=== PATIENT | male | born 1995 | race Caucasian/White ===

== ENCOUNTER 2021-02-04 17:49 | Emergency (ER) | payer OTHER ==
[~2021-02-04] VITALS: Ht 190.5 cm; Wt 76.7 kg
--- NOTE | 2021-02-04 20:15 | REPVR ---
PROCEDURE INFORMATION: Exam: XR Right Shoulder Exam date and time: 02/04/2021 7:16 PM Age: 25 years old Clinical indication: Pain; Shoulder; Right; Additional info: Pain, dec rom, numbness in fingers TECHNIQUE: Imaging protocol: XR Right shoulder. Views: 2 or more views. COMPARISON: No relevant prior studies available. FINDINGS: Bones/joints: Normal. Soft tissues: Normal. IMPRESSION: No acute findings. Electronically signed by: Dustin Bansal On 02/04/2021 20:15:03 PM
--- NOTE | 2021-02-04 20:16 | REPVR ---
PROCEDURE INFORMATION: Exam: XR Cervical Spine Exam date and time: 02/04/2021 7:16 PM Age: 25 years old Clinical indication: Neck pain; Additional info: Limited rom neck TECHNIQUE: Imaging protocol: XR of the cervical spine. Views: 2 or 3 views. COMPARISON: No relevant prior studies available. FINDINGS: Bones/joints: Normal. No acute fracture. Normal alignment. Soft tissues: Unremarkable. IMPRESSION: No acute findings. Electronically signed by: Dustin Bansal On 02/04/2021 20:15:57 PM
[2021-02-04] MEDS ORDERED: CYCL5TAB PO (20:54)
[2021-02-04] MEDS ORDERED: NORCO, ANEXSIA 5/325MG TABLET (HYDROcodone/ACETAMINOPHEN) PO ONE (20:55)
[2021-02-04] MEDS ORDERED: IBUP80TA PO (20:55)
[2021-02-04 21:02] VITALS: BP 126/79
== END 2021-02-04 21:07 | disposition home or self-care (01) ==
LOC: M ED 17:49
DX: M25.511 Pain in right shoulder (principal)

== ENCOUNTER 2021-04-30 23:49 | Emergency (ER) | payer OTHER ==
[~2021-04-30] VITALS: Ht 190.5 cm; Wt 78.3 kg
[~2021-04-30 23:49] MED LIST: CYCL5TAB PO; IBUP80TA PO
--- NOTE | 2021-05-01 03:08 | REPVR ---
PROCEDURE INFORMATION: Exam: US Scrotum Exam date and time: 05/01/2021 2:50 AM Age: 25 years old Clinical indication: Groin pain; Additional info: Lump in groin TECHNIQUE: Imaging protocol: Real-time ultrasound of the scrotum and contents with color Doppler and image documentation. COMPARISON: No relevant prior studies available. FINDINGS: Right testicle: Normal. No mass. No torsion. Normal vascular flow. Left testicle: Microlithiasis in the left testicle. No testicular mass or torsion. Epididymides: Normal. No hyperemia or mass. Scrotum: Normal. No varicocele or hydrocele. IMPRESSION: 1. Left testicular microlithiasis. 2. No acute findings. Electronically signed by: Miguel Santiago On 05/01/2021 03:07:38 AM
--- NOTE | 2021-05-01 03:10 | REPVR ---
PROCEDURE INFORMATION: Exam: US Pelvis Limited, Transabdominal, Soft tissue Exam date and time: 05/01/2021 2:50 AM Age: 25 years old Clinical indication: Pain; Other: Lt grion; Additional info: Lump in groin TECHNIQUE: Imaging protocol: Real-time transabdominal pelvic ultrasound with image documentation. Limited exam. Exam focused on the soft tissue. COMPARISON: Scrotal, US 05/01/2021 2:25 AM FINDINGS: Soft tissues: There is a complex fluid collection in the left groin corresponding to the palpable abnormality, measuring 2.0 x 1.0 x 1.1 cm. Mild surrounding hyperemia. No other mass or fluid collections. No inguinal hernia. Lymph nodes: Scattered small inguinal lymph nodes. IMPRESSION: 1. Complex fluid collection left inguinal canal, possible small abscess. 2. No inguinal hernia. Electronically signed by: Miguel Santiago On 05/01/2021 03:10:06 AM
[2021-05-01 04:22] VITALS: BP 134/73
[2021-05-01] MEDS ORDERED: BACT800T5 PO (05:14)
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
== END 2021-05-01 05:20 | disposition home or self-care (01) ==
LOC: M ED 23:49
DX: L02.214 Cutaneous abscess of groin (principal)

== ENCOUNTER 2021-07-06 09:03 | Emergency (ER) | payer OTHER ==
[~2021-07-06] VITALS: Ht 190.5 cm; Wt 61.4 kg
[~2021-07-06 09:03] MED LIST changes: +BACT800T5 PO
[2021-07-06] MEDS ORDERED: ISOVUE-370 76% 100ML VIAL As Ordered ONE (10:41)
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
[2021-07-06 11:42] VITALS: BP 94/55
== END 2021-07-06 11:45 | disposition home or self-care (01) ==
LOC: M ED 09:03
DX: S00.81XA Abrasion of other part of head, initial encounter (principal); S50.312A Abrasion of left elbow, initial encounter; S09.90XA Unspecified injury of head, initial encounter; W10.8XXA Fall (on) (from) other stairs and steps, initial encounter; Y92.138 Other place on military base as the place of occurrence of the external cause; M54.2 Cervicalgia; F10.229 Alcohol dependence with intoxication, unspecified
CPT/HCPCS: 36415; 70450; 70491; 71101; 72125; 72128; 72131; 73080; 80047; 99284; Q9967

== ENCOUNTER 2022-02-20 07:25 | Emergency (ER) | payer OTHER ==
[~2022-02-20] VITALS: Ht 190.5 cm; Wt 77.3 kg
[2022-02-20] MEDS ORDERED: IBUP1TAB6 PO (07:34)
[2022-02-20] MEDS ORDERED: KETOROLAC 30 MG/ML 1ML VIAL IM ONE (09:25)
[2022-02-20 10:44] VITALS: BP 121/90
== END 2022-02-20 10:44 | disposition home or self-care (01) ==
LOC: M ED 07:25
DX: M54.12 Radiculopathy, cervical region (principal)
CPT/HCPCS: 72040; 72125; 96372; 99283; J1885

== ENCOUNTER → 2022-03-15 | Outpatient (REF) ==
[~2022-03-15] MED LIST changes: +IBUP1TAB6 PO
== END ==
LOC: M PLAIMG 11:34
PROVIDERS: ATTEND Internal Medicine
DX: R52 Pain, unspecified (principal)

== ENCOUNTER 2022-04-01 06:54 | Emergency (ER) | payer OTHER ==
[~2022-04-01] VITALS: Ht 190.5 cm; Wt 87.7 kg
[2022-04-01] MEDS ORDERED: diazePAM 10 MG TAB PO ONE (07:50)
[2022-04-01] MEDS ORDERED: KETOROLAC 60MG 2ML VIAL IM ONE (07:50)
[2022-04-01] MEDS ORDERED: LIDOCAINE 5% (LIDODERM) PATCH TD ONE (07:50)
[2022-04-01 09:29] VITALS: BP 159/82
[2022-04-01] MEDS ORDERED: LIDO1PAD TOP (09:35)
[2022-04-01] MEDS ORDERED: PRED20TA PO (09:35)
[2022-04-01] MEDS ORDERED: **NOTE PATIENT COMMENT** MISC XX ONE (20:00)
== END 2022-04-01 09:44 | disposition home or self-care (01) ==
LOC: M ED 06:54
DX: M51.26 Other intervertebral disc displacement, lumbar region (principal); F17.200 Nicotine dependence, unspecified, uncomplicated
CPT/HCPCS: 72131; 96372; 99283; J1885